=== PATIENT | female | born 1935 | race Caucasian/White ===

== ENCOUNTER 2016-12-19 | Day surgery (SDC) | payer MEDICARE ==
[2016-12-15 14:05] LABS: HEMATOCRIT 42.6 % (36.0-48.0); HEMOGLOBIN 14.5 g/dL (12.0-16.0)
[2016-12-15 14:17] LABS: BUN (BLOOD UREA NITROGEN) 24 MG/DL (6-23); CALCIUM, SERUM 9.1 MG/DL (8.5-10.4); CHLORIDE, SERUM 104 MMOL/L (96-112); CO2 (CARBON DIOXIDE) 27 MMOL/L (24-34); CREATININE 0.75 MG/DL (0.55-1.02); GFR AFRICAN AMERICAN 86 ML/MIN (>=60); GFR NON AFRICAN AMERICAN 74 ML/MIN (>=60); GLUCOSE, SERUM 89 MG/DL (60-99); POTASSIUM, SERUM 3.8 MMOL/L (3.5-5.3); SODIUM, SERUM 141 MMOL/L (135-148)
[~2016-12-19] MED LIST: ASAB PO; BILBERRY500 MG PO; CENTRUM PO; CITRACAL PO; FISH OIL1200 MG PO; OSTEO BI-FLEX1 EACH PO; PRAVACHOL40 MG PO; PRIN2.5 PO; REM15 PO
--- NOTE | ~2016-12-19 | OP ---
Record Of Operation [facility] [address] [place]. [address] NAME: PO NUGENT : 33 STATUS : ADM IN PAT#: [id number] AGE: 81 ADM/REG DATE : 12/19/16 MR#: [id number] REPORT SERV DATE: 12/19/16 DICTATED BY: REZA CUEVAS DATE: 12/19/16 REPORT STATUS : Draft TRANSCRIBED BY: MODL DATE: 12/19/16 DATE OF PROCEDURE: PREOPERATIVE DIAGNOSIS: Herniated nucleus pulposus, and spinal stenosis, L3-4. POSTOPERATIVE DIAGNOSIS: Herniated nucleus pulposus, and spinal stenosis, L3-4. PROCEDURE: 1. Microscopic and navigation assisted surgery. 2. Right-sided hemilaminotomy, foraminotomy, partial medial facetectomy, and microdiskectomy. Bilateral decompression through a unilateral approach. SURGEON: Reza Cuevas D.O. DISPATCHER SERVICE CHIEF: Monica Horner. ANESTHESIA: General. ESTIMATED BLOOD LOSS: 20 mL. INDICATION FOR SURGERY: An 81-year-old female, with acute severe back pain and leg pain, right greater than left. The patient is having some difficulty with walking. The patient has failed conservative care. Plain x-rays do reveal minimal grade 1 spondylolisthesis, but no instability is found on lateral flexion and extension. She has had an MRI showing some ligamentum flavum hypertrophy and she also does have a large central and right-sided HNP. She is brought to surgery for the above procedure having failed conservative care. Prior to surgery, risks, benefits, alternatives, and expectations were explained. Consent form is signed. Today in the preop holding, the patient was identified, all questions were answered. The patient voiced understanding the risks, willingness to accept those, and requested to proceed. DESCRIPTION OF PROCEDURE: Antibiotic prophylaxis was given. Neurophysiology monitoring leads were inserted. The patient was brought to the operative suite, general anesthetic including endotracheal intubation was administered. She was placed prone on a Sudhakar spine frame. Bony prominences were carefully padded. Thoracolumbar spine was scrubbed with Hibiclens solution. DuraPrep was painted. Sterile drapes were applied. A small stab wound was carried out on the left posterior superior iliac spine. A percutaneous pin with navigational frame attached was inserted in PSIS. Intraoperative CT scan with O-arm was obtained. CT information was used to register the navigational system. With navigational assistance, I identified the L3-4 level. Just right of midline, a 2 cm skin incision was carried out. A blunt navigated probe was placed through the fascia and muscle and docked over the interlaminar space. Muscle dilator was inserted, followed by Record Of Operation [facility] [address] [place]. [address] NAME: PO NUGENT : 33 STATUS : ADM IN PAT#: [id number] AGE: 81 ADM/REG DATE : 12/19/16 MR#: [id number] REPORT SERV DATE: 12/19/16 DICTATED BY: REZA CUEVAS DATE: 12/19/16 REPORT STATUS : Draft TRANSCRIBED BY: AVILA DATE: 12/19/16 placement of a tubular retractor attached to an arm mount on the table. The microscope was sterilely draped and used throughout the remainder of procedure. With navigational assistance, I identified the amount of lamina of L3 I needed to remove in order to reach the cephalad boundary of the disk space. I removed approximately 60% lamina of L3, as well as 10% of the superior lamina of L4, there was ligamentum flavum hypertrophy and some facet hypertrophy. I removed 30% of medial facet joint as well with a bur, as well as 2 and 3 mm Kerrison rongeur. I completely decompressed the central canal, and I rolled the patient and the bed as a unit, and worked across the posterior aspect of the thecal sac decompressing the ligamentum flavum all the way to the opposite foramen. After the bilateral decompression through a unilateral approach. I then returned to the right side where the thecal sac was mobilized, disk extrusion was removed with pituitary rongeur and completely removing the extruded disk fragment and stem cells. The wound was irrigated. No further compression by either disk, bone, or ligament was found. The fascial layer was closed with a single interrupted #1 Vicryl suture. The subcutaneous tissue was closed with 2-0 Vicryl suture, 2-0 vertical mattress nylon suture was used for skin closure. Sterile dressings were applied. The patient awakened, extubated, taken to recovery room in satisfactory condition having tolerated the procedure well. ZAIDA/AVILA Reza Cuevas D.O. / [id number] CC: Gricelda Farmer M.D.
[2016-12-20] MEDS ORDERED: ULTRAM50 PO (12:28)
[2016-12-20] MEDS ORDERED: METHOC500B PO (12:29)
== END 2016-12-20 13:57 | disposition home or self-care (01) ==
PROVIDERS: Orthopaedic Surgery Orthopaedic Surgery of the Spine
PROC: 0SB20ZZ Excision of Lumbar Vertebral Disc, Open Approach (ICD-10-PCS; principal; 2016-12-19 05:45)
PROC: 01NB0ZZ Release Lumbar Nerve, Open Approach (ICD-10-PCS; 2016-12-19 05:45)
DX: M51.16 Intervertebral disc disorders with radiculopathy, lumbar region (principal); M48.06 Spinal stenosis, lumbar region; I44.7 Left bundle-branch block, unspecified; E78.00 Pure hypercholesterolemia, unspecified; M19.90 Unspecified osteoarthritis, unspecified site; E89.0 Postprocedural hypothyroidism; F41.9 Anxiety disorder, unspecified; I10 Essential (primary) hypertension; Z86.73 Personal history of transient ischemic attack (TIA), and cerebral infarction without residual deficits; Z79.82 Long term (current) use of aspirin; Z79.899 Other long term (current) drug therapy; Z90.49 Acquired absence of other specified parts of digestive tract; Z98.41 Cataract extraction status, right eye; Z98.42 Cataract extraction status, left eye; Z90.710 Acquired absence of both cervix and uterus
CPT/HCPCS: 80048; 85014; 85018; 88304; 88311; 93005; A9270-GY; J0690; J2250; J2274; J2405; J2550; J2710; J3010